=== PATIENT | male | born 1970 ===

== ENCOUNTER 2017-01-31 08:24 | Emergency (ER) | payer OTHER ==
[~2017-01-31] VITALS: Ht 172.7 cm; Wt 68.2 kg
[2017-01-31 08:27] VITALS: Ht 172.7 cm; Wt 68.2 kg
[2017-01-31] MEDS ORDERED: OXYMETAZOLINE 0.05% 15 ML NAS SPRAY NASAL ONE (08:30)
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
[2017-01-31] MEDS ORDERED: CEPH-443 PO (10:09)
[2017-01-31] MEDS ORDERED: CEFAZOLIN 1 GM INJ IM ONE (10:30)
[2017-01-31 10:45] VITALS: BP 119/82; PULSE 76; RESP 18; TEMP 98.1
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
== END 2017-01-31 11:15 ==
LOC: E/R 08:24
DX: S02.2XXA Fracture of nasal bones, initial encounter for closed fracture (principal); S02.401A Maxillary fracture, unspecified side, initial encounter for closed fracture; S09.8XXA Other specified injuries of head, initial encounter; J45.909 Unspecified asthma, uncomplicated; Y04.0XXA Assault by unarmed brawl or fight, initial encounter; Z87.891 Personal history of nicotine dependence
CPT/HCPCS: 70450; 70486; 96372; 99285; J0690